=== PATIENT | female | born 1995 | race Hispanic/Latino ===

== ENCOUNTER 2017-12-12 10:38 | Emergency (ER) | payer SELFPAY ==
[2017-12-12] MEDS ORDERED: HYDROXYZINE HCL 25 MG TABLET ONE (11:36)
[2017-12-12 11:50] LABS: APPEARANCE,URINE TURBID (CLEAR); BILIRUBIN,URINE SMALL (NEGATIVE); COLOR,URINE YELLOW (YELLOW); GLUCOSE, URINE (UA) NEGATIVE (NEGATIVE); KETONES,URINE 15 mg/dL (NEGATIVE); LEUKOCYTE ESTERASE ,URINE MODERATE (NEGATIVE); NITRATE,URINE NEGATIVE (NEGATIVE); OCCULT BLOOD,URINE MODERATE (NEGATIVE); PROTEIN,URINE 100 (NEGATIVE)
[2017-12-12 11:51] LABS: WBC,URINE 51-100 /HPF (0-1)
[2017-12-12 11:52] LABS: BACTERIA,URINE Many /HPF (None Seen); MUCUS,URINE Rare LPF (None Seen); SQUAMOUS EPITHELIAL CELL,UR Many /HPF (0-2)
[2017-12-12 11:54] LABS: HCG,QUAL RESULT NEGATIVE (NEGATIVE); TRICHOMONAS,URINE Many /LPF (None Seen)
[2017-12-12 11:58] LABS: AMPHET/METH SCREEN,URINE NEGATIVE (NEGATIVE); BARBITURATE SCREEN, URINE NEGATIVE (NEGATIVE); BENZODIAZEPINES SCREEN,URINE NEGATIVE (NEGATIVE); CANNABINOID SCREEN,URINE NEGATIVE (NEGATIVE); COCAINE SCREEN,URINE NEGATIVE (NEGATIVE); OPIATE SCREEN,URINE NEGATIVE (NEGATIVE); PHENCYCLIDINE SCREEN,URINE NEGATIVE (NEGATIVE)
[2017-12-12 12:21] LABS: BASOPHILS % (AUTO) 0.1 % (0.0-5.0); HEMATOCRIT 36.5 % (36-48); LYMPHOCYTES % (AUTO) 17.2 % (21.0-51.0); MEAN CORPUSCULAR HEMOGLOBIN 33.1 pg (27.0-33.0); MEAN CORPUSCULAR HGB CONC 35.2 g/dL (32.0-36.0); MEAN CORPUSCULAR VOLUME 94.1 fL (79-99); MONOCYTES % (AUTO) 9.1 % (3.0-13.0); NEUTROPHILS % (AUTO) 73.6 % (40.0-77.0); PLATELET COUNT (AUTO) 307 K/uL (130-400); RED BLOOD CELL COUNT(AUTO) 3.87 MIL/uL (4.00-5.50); RED CELL DISTRIBUTION WIDTH 14.7 % (11.0-15.5); WHITE BLOOD COUNT (AUTO) 10.1 K/uL (4.8-10.8)
[2017-12-12 12:48] LABS: CARBON DIOXIDE 25 mmol/L (21-32); CHLORIDE 99 mmol/L (101-111); CREATININE 0.7 mg/dL (0.5-1.5); GLOMERULAR FILTR. RATE CALC 110 mL/min (>60); GLUCOSE,RANDOM 105 mg/dL (70-105); LIPASE 159 U/L (114-286); SODIUM SERUM 135 mmol/L (136-145); UREA NITROGEN, BLOOD 9 mg/dL (7-18)
[2017-12-12 12:56] LABS: ACETAMINOPHEN < 1 mcg/mL (10-30); SALICYLATE < 2.8 mg/dL (2.8-20.0)
[2017-12-12 12:57] LABS: ALCOHOL, BLOOD < 3 mg/dL (0-10)
[2017-12-12] MEDS ORDERED: LIDOCAINE HCL-MPF 1% 2ML VIAL ONE (15:47)
[2017-12-12] MEDS ORDERED: CEFTRIAXONE SODIUM 1 GM ONE (15:47)
[2017-12-12] MEDS ORDERED: POTASSIUM BICARB/CIT AC 25 MEQ TABLET.EFF ONE (15:47)
== END 2017-12-12 17:44 | disposition home or self-care (01) ==
LOC: EDH 10:38 → EDBD 10:38 → EDH 17:44
DX: F41.1 Generalized anxiety disorder (principal); R45.851 Suicidal ideations; N39.0 Urinary tract infection, site not specified
CPT/HCPCS: 36415; 80048; 80305; 81001; 81025; 83690; 85025; 93005; 96372; 99285; G0480 ×2; G0481; J0696; J3490

== ENCOUNTER 2019-11-25 02:48 | Emergency (ER) | payer OTHER ==
[2019-11-25 03:12] LABS: APPEARANCE,URINE Clear (CLEAR); BILIRUBIN,URINE Negative (NEGATIVE); COLOR,URINE Yellow (YELLOW); GLUCOSE, URINE (UA) Negative (NEGATIVE); KETONES,URINE Negative (NEGATIVE); LEUKOCYTE ESTERASE ,URINE Small (NEGATIVE); NITRATE,URINE Negative (NEGATIVE); OCCULT BLOOD,URINE Negative (NEGATIVE); PROTEIN,URINE POS 2+ mg/dL (NEGATIVE)
[2019-11-25 03:14] LABS: HCG,QUAL RESULT NEGATIVE (NEGATIVE)
[2019-11-25] MEDS ORDERED: TETANUS/DIPHTHERIA TOXOID [ADULT] 0.5 ML VIAL IM ONE (03:22)
[2019-11-25 04:03] LABS: BACTERIA,URINE Few /HPF (None Seen); RBC,URINE 0-1 /HPF (0-1)
== END 2019-11-25 04:36 ==
LOC: EDH 02:48
DX: S02.2XXA Fracture of nasal bones, initial encounter for closed fracture (principal); S80.12XA Contusion of left lower leg, initial encounter; S80.11XA Contusion of right lower leg, initial encounter; S40.022A Contusion of left upper arm, initial encounter; S40.021A Contusion of right upper arm, initial encounter; S00.83XA Contusion of other part of head, initial encounter; Y08.89XA Assault by other specified means, initial encounter; Y93.89 Activity, other specified; Y92.89 Other specified places as the place of occurrence of the external cause; Y99.8 Other external cause status
CPT/HCPCS: 70450; 70486; 81001; 81025; 90471; 90714

== ENCOUNTER 2020-08-17 16:06 | Emergency (ER) | payer MEDICAID, OTHER | END 2020-08-17 16:28 | disposition left against medical advice (07) | LOC: EDH 16:06 | DX: N39.9 Disorder of urinary system, unspecified (principal) | CPT/HCPCS: 99281 ==